=== PATIENT | male | born 1990 | race African-American/Black ===

== ENCOUNTER 2020-01-03 11:35 | Emergency (ER) | payer SELFPAY ==
[~2020-01-03] VITALS: Ht 177.8 cm; Wt 79.4 kg
[2020-01-03 11:40] VITALS: BP 157/83
--- NOTE | 2020-01-03 11:40 | NUR ---
ED Nurse Note: Patient brought in by RA [facility] due to tonic clonis sezire for about 2 mins happened 30mins ago. 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 Pt admits on drinking last night and states that he took "shrooms" 2 days ago. Patient had one prior history of seizure and does not have seizure medications. Pt is AAO x4, follows commands with non labored breathing. Denies any headache or dizziness.
--- NOTE | 2020-01-03 11:45 | NUR ---
ED Nurse Note: Collected blood specimen and sent.
[2020-01-03] MEDS ORDERED: levETIRAcetam 500mg/NS100ml 100 ML IVPB ONE (12:00)
--- NOTE | 2020-01-03 12:19 | NUR ---
ED Nurse Note: Collected urine then sent.
[2020-01-03 12:42] LABS: BASOPHILS % (AUTO) 1.8 % (0.0-2.0); EOSINOPHILS % (AUTO) 1.9 % (0.0-3.0); HEMATOCRIT 47.4 % (42.0-52.0); HEMOGLOBIN 15.8 G/DL (14.2-18.0); LYMPHOCYTES % (AUTO) 36.6 % (20.0-45.0); MEAN CORPUSCULAR VOLUME 90 FL (80-99); MONOCYTES % (AUTO) 4.3 % (1.0-10.0); NEUTROPHILS % (AUTO) 55.4 % (45.0-75.0); PLATELET COUNT 241 K/UL (150-450); RED BLOOD COUNT 5.28 M/UL (4.70-6.10); RED CELL DISTRIBUTION WIDTH 11.1 % (11.6-14.8); WHITE BLOOD COUNT 10.3 K/UL (4.8-10.8)
[2020-01-03 12:43] LABS: APPEARANCE,URINE CLEAR; BILIRUBIN, URINE NEGATIVE (NEGATIVE); GLUCOSE, URINE (UA) NEGATIVE (NEGATIVE); KETONES,URINE 1+ (NEGATIVE); LEUKOCYTE ESTERASE ,URINE 1+ (NEGATIVE); NITRITE,URINE NEGATIVE (NEGATIVE); PH,URINE 7 (4.5-8.0); PROTEIN,URINE 2+ (NEGATIVE); UROBILINOGEN,URINE 1 MG/DL (0.0-1.0)
[2020-01-03 12:45] LABS: COLOR,URINE YELLOW
[2020-01-03 12:47] LABS: ANION GAP 16 mmol/L (5-15); BLOOD UREA NITROGEN 7 mg/dL (7-18); CALCIUM 9.2 MG/DL (8.5-10.1); CARBON DIOXIDE 25 MMOL/L (21-32); CHLORIDE 102 MMOL/L (98-107); CREATININE 1.5 MG/DL (0.55-1.30); POTASSIUM 3.2 MMOL/L (3.5-5.1); SODIUM 143 MMOL/L (136-145)
[2020-01-03 12:58] LABS: ALANINE AMINOTRANSFERASE 26 U/L (12-78); ALBUMIN 4.6 G/DL (3.4-5.0); ALBUMIN/GLOBULIN RATIO 1.4 (1.0-2.7); ALKALINE PHOSPHATASE 52 U/L (46-116); ASPARTATE AMINO TRANSFERASE 22 U/L (15-37); BILIRUBIN,TOTAL 1.7 MG/DL (0.2-1.0); CREATINE KINASE 256 U/L (26-308)
[2020-01-03 13:04] LABS: BILIRUBIN,DIRECT 0.3 MG/DL (0.0-0.3)
[2020-01-03] MEDS ORDERED: KEPPRA500 M4 ORAL (13:17)
--- NOTE | 2020-01-03 13:29 | NUR ---
lapse of consciousnes form has heen completed and faxed to [phone]
[2020-01-03 13:33] VITALS: BP 137/67
--- NOTE | 2020-01-03 13:33 | NUR ---
ER DISCHARGE NOTE: Patient is cleared to be discharged per ERMD, pt is aox4, on room air, with stable vital signs. pt was given dc and prescription instructions, pt was able to verbalize understanding, pt id band and iv site removed without complications. pt is able to ambulate with steady gait. pt took all belongings.
--- NOTE | 2020-01-04 17:20 | Emergency Room Report ---
History of Present Illness General Chief Complaint: Seizure Source: Patient Present Illness HPI Patient is a 29-year-old male presented for witnessed seizure. Had seizure at [facility]. Prior seizure in the past 1 time. Patient did not currently take any seizure medications. Had previous work-up including imaging and EEG. Patient resides in [place]. He states that he had been drinking alcohol yesterday as well as staying awake very late. Allergies: Coded Allergies: No Known Allergies (Unverified , 01/03/20) COVID-19 Screening Contact w/high risk pt: No Experienced COVID-19 symptoms?: No COVID-19 Testing performed LEGAL ASSISTANT: No Patient History Past Medical History: see triage record Reviewed Nursing Documentation: PMH: Agreed; PSxH: Agreed Nursing Documentation-PMH Past Medical History: No History, Except For Hx Seizures: Yes Review of Systems All Other Systems: negative except mentioned in HPI Physical Exam Vital Signs Date Time Temp Pulse Resp B/P (MAP) Pulse Ox O2 Delivery O2 Flow Rate FiO2 01/03/20 11:30 98.4 110 17 132/70 (90) 100 Room Air Sp02 EP Interpretation: reviewed, normal General Appearance: normal inspection, well appearing, no apparent distress, alert, GCS 15 Head: atraumatic ENT: normal ENT inspection, hearing grossly normal, normal voice Neck: normal inspection, full range of motion, supple, no bony tend Respiratory: normal inspection, lungs clear, normal breath sounds, no respiratory distress, no retraction, no wheezing Cardiovascular #1: regular rate, rhythm, no edema Gastrointestinal: normal inspection, normal bowel sounds, non tender, soft, no guarding, no hernia Genitourinary: no CVA tenderness Musculoskeletal: normal inspection, back normal, normal range of motion Neurologic: alert, responsive, speech normal, normal inspection Psychiatric: normal inspection, judgement/insight normal, mood/affect normal Medical Decision Making Diagnostic Impression: Primary Impression: Epileptic seizure, generalized Additional Impressions: Dehydration Hypokalemia ER Course Patient presented for seizure. Differential diagnosis included subtherapeutic anticonvulsant level, status epilepticus, CVA, cysticercosis, electrolyte abnormality, mass lesion, intracranial hemorrhage. laboratory testing were ordered due to the patient's complexity. Patient was noted to be somewhat dehydrated. He was given IV fluids. Laboratory testing did not show any evidence of hyponatremia. Patient was given oral potassium. He was also loaded with Keppra. Patient was advised not to drive a motor vehicle. He was noted to have improvement in his mental status. At the time of discharge patient was awake alert and oriented and ambulatory without assistance. He was advised to follow-up with primary care physician for further evaluation and treatment of seizures. He was given prescription for Keppra. The patient is advised to follow up with primary care doctor as soon as possible. Patient is advised to return if any worsening condition or if any changes in status that are concerning. This report is dictated with [employer] software which may occasionally lead to discrepancies related to use of this software. Labs Test 01/03/20 11:40 01/03/20 12:18 White Blood Count 10.3 K/UL (4.8-10.8) Red Blood Count 5.28 M/UL (4.70-6.10) Hemoglobin 15.8 G/DL (14.2-18.0) Hematocrit 47.4 % (42.0-52.0) Mean Corpuscular Volume 90 FL (80-99) Mean Corpuscular Hemoglobin 30.0 PG (27.0-31.0) Mean Corpuscular Hemoglobin Concent 33.3 G/DL (32.0-36.0) Red Cell Distribution Width 11.1 % (11.6-14.8) Platelet Count 241 K/UL (150-450) Mean Platelet Volume 6.9 FL (6.5-10.1) Neutrophils (%) (Auto) 55.4 % (45.0-75.0) Lymphocytes (%) (Auto) 36.6 % (20.0-45.0) Monocytes (%) (Auto) 4.3 % (1.0-10.0) Eosinophils (%) (Auto) 1.9 % (0.0-3.0) Basophils (%) (Auto) 1.8 % (0.0-2.0) Sodium Level 143 MMOL/L (136-145) Potassium Level 3.2 MMOL/L (3.5-5.1) Chloride Level 102 MMOL/L (98-107) Carbon Dioxide Level 25 MMOL/L (21-32) Anion Gap 16 mmol/L (5-15) Blood Urea Nitrogen 7 mg/dL (7-18) Creatinine 1.5 MG/DL (0.55-1.30) Estimat Glomerular Filtration Rate > 60 mL/min (>60) Glucose Level 118 MG/DL (74-106) Calcium Level 9.2 MG/DL (8.5-10.1) Total Bilirubin 1.7 MG/DL (0.2-1.0) Direct Bilirubin 0.3 MG/DL (0.0-0.3) Aspartate Amino Transf (AST/SGOT) 22 U/L (15-37) Alanine Aminotransferase (ALT/SGPT) 26 U/L (12-78) Alkaline Phosphatase 52 U/L (46-116) Total Creatine Kinase 256 U/L (26-308) Total Protein 7.9 G/DL (6.4-8.2) Albumin 4.6 G/DL (3.4-5.0) Globulin 3.3 g/dL Albumin/Globulin Ratio 1.4 (1.0-2.7) Serum Alcohol < 3 mg/dL Urine Color Yellow Urine Appearance Clear Urine pH 7 (4.5-8.0) Urine Specific [place] 1.010 (1.005-1.035) Urine Protein 2+ (NEGATIVE) Urine Glucose (UA) Negative (NEGATIVE) Urine Ketones 1+ (NEGATIVE) Urine Blood Negative (NEGATIVE) Urine Nitrite Negative (NEGATIVE) Urine Bilirubin Negative (NEGATIVE) Urine Urobilinogen 1 MG/DL (0.0-1.0) Urine Leukocyte Esterase 1+ (NEGATIVE) Urine RBC 0 /HPF (0 - 0) Urine WBC 0-2 /HPF (0 - 0) Urine Squamous Epithelial Cells None /LPF (NONE/OCC) Urine Bacteria None /HPF (NONE) Urine Opiates Screen Negative (NEGATIVE) Urine Barbiturates Screen Negative (NEGATIVE) Phencyclidine (PCP) Screen Negative (NEGATIVE) Urine Amphetamines Screen Negative (NEGATIVE) Urine Benzodiazepines Screen Negative (NEGATIVE) Urine Cocaine Screen Negative (NEGATIVE) Urine Marijuana (THC) Screen Positive (NEGATIVE) Last Vital Signs Date Time Temp Pulse Resp B/P (MAP) Pulse Ox O2 Delivery O2 Flow Rate FiO2 01/03/20 13:33 98.7 84 20 137/67 100 Room Air Status: improved Disposition: HOME, SELF-CARE Condition: Stable Scripts Levetiracetam (KEPPRA) 500 Mg Tablet 500 MG ORAL EVERY 12 HOURS, #60 TAB 0 Refills Prov: Javon Coe MD 01/03/20 Referrals: NOT CHOSEN IPA/MD,REFERRING (PCP) Patient Instructions: Seizure, Adult Additional Instructions: Follow up with your doctor for recheck. Do not drive or operate heavy machinery. Return if worse. Javon Coe MD Jan 04, 2020 17:20
== END 2020-01-03 13:33 | disposition home or self-care (01) ==
LOC: EDBD 11:35 → EMR 11:50
DX: G40.409 Other generalized epilepsy and epileptic syndromes, not intractable, without status epilepticus (principal); E86.0 Dehydration; E87.6 Hypokalemia
CPT/HCPCS: 36415; 80053; 80307; 81003; 82248; 82550; 85025; 93005; 96361; 96374; 99284; G0480; J1953; J7030; J8499